=== PATIENT | male | born 1995 | race Two or more races ===

== ENCOUNTER 2024-04-16 08:02 | Emergency (ER) | payer BC, SELFPAY ==
[2024-04-16 08:18] VITALS: BP 173/108; PULSE 81; RESP 18; TEMP 36.9; O2SAT 100; BMI 25.0
--- NOTE | 2024-04-16 08:33 | PD.EDRME ---
Rapid Medical Screening Exam E Arrival date/time: 04/16/24 08:02 This is a 29-year-old male that has had abdominal pain for the past 4 days now. Patient reports nausea and vomiting. Patient denies any fever or chills. Patient denies any past medical history. Patient also reports that he had blurry vision this morning. Patient denies blurry vision at this time. Patient denies any headache or any other symptoms. I have greeted and performed a focused initial assessment of this patient. Initial appropriate labs ordered at this time. A comprehensive ED assessment and evaluation of the patient and analysis of all test and completion of medical decision making process will be conducted by additional ED provider. Chief Complaint: Abdominal Pain Time Seen by Provider: 04/16/24 08:08 Vital signs: Vital Signs Temperature 98.4 F 04/16/24 08:18 Pulse Rate 81 04/16/24 08:18 Respiratory Rate 18 04/16/24 08:18 Blood Pressure 173/108 H 04/16/24 08:18 Pulse Oximetry (%) 100 04/16/24 08:18 Oxygen Delivery Method Room Air 04/16/24 08:18
[2024-04-16 08:59] LABS: Collection Type, Urine Voided; Squamous Epithelial Cell,Urine 0 /hpf (0-5); WBC,Urine 0 /hpf (0-5)
[2024-04-16 09:02] LABS: Basophils % (Auto) 1 % (0-2.5); Eosinophils # (Auto) 0.1 Thou/mm3 (0.0-0.5); Eosinophils % (Auto) 1 % (0-10); Hematocrit 41.7 % (41.0-53.0); Hemoglobin 12.7 g/dL (13.5-16.0); Immature Granulocytes % (Auto) 0 % (0-0); Immature Granulocytes Auto 0.03 Thou/mm3 (0.00-0.00); Lymphocytes # (Auto) 1.4 Thou/mm3 (1.0-4.8); Lymphocytes % (Auto) 18 % (10-50); Mean Corpuscular HGB Conc 30.5 g/dl (31.0-37.0); Mean Corpuscular Hemoglobin 22.4 pg (25.0-35.0); Mean Corpuscular Volume 74 fL (80-100); Monocytes # (Auto) 1.1 Thou/mm3 (0.0-0.8); Monocytes % (Auto) 14 % (0-12); Neutrophils % (Auto) 65 % (37-80); Nucleated Red Blood Cell % 0 /100 WBC (0); Platelet Count 289 Thou/mm3 (140-440); RDW Standard Deviation 47.3 fL (35.1-43.9); Red Blood Count 5.67 Miln/mm3 (4.50-5.90); White Blood Count 7.7 Thou/mm3 (3.8-10.6)
[2024-04-16 09:20] LABS: Amphetamine/Methamp Scrn,U Negative (Negative); Barbiturate Screen,Urine Negative (Negative); Benzodiazepines Screen,Urine Negative (Negative); Benzoylecgonine Screen, Ur Negative (Negative); Fentanyl Screen,Urine Negative (Negative); Opiate Screen,Urine Negative (Negative); THC Screen,Urine Negative (Negative)
[2024-04-16 09:21] LABS: Alanine Aminotransferase 167 U/L (10-49); Albumin/Globulin Ratio 1.5 (1.2-2.2); Alkaline Phosphatase 131 U/L (46-116); Anion Gap 7 (7-16); Aspartate Amino Transferase 255 U/L (0-34); BUN/Creatinine Ratio 10 Ratio (12-20); Bilirubin,Total 1.1 mg/dL (0.3-1.2); Blood Urea Nitrogen 7 mg/dL (9-23); Calcium 10.3 mg/dL (8.3-10.6); Calcium (Corrected) 10.3 mg/dL (8.5-10.1); Carbon Dioxide 28.1 mMol/L (20.0-31.0); Chloride 102 mMol/L (98-107); Creatinine (Component) 0.7 mg/dL (0.6-1.3); Estimated Creatinine Clearance 135.4 mL/min (>60); Globulin 3.3 gm/dL (2.3-3.5); Glucose 112 mg/dL (74-106); Lipase 65 U/L (12-53); Osmolality,Calculated 272 (275-295); Sodium 137 mMol/L (136-145); Total Protein 8.3 gm/dL (5.7-8.2); eGFR > 60 See Note
[2024-04-16 10:16] LABS: Bilirubin,Urine Negative (Negative); Blood,Urine Negative (Negative); Clarity,Urine Clear (Clear/Hazy); Color,Urine Lt Yellow (Lt Yel-Yel); Culture Indicated,Urine Not Indicated; Glucose, Urine Negative (Negative); Ketones,Urine Negative (Negative); Leukocyte Esterase,Urine Negative (Negative); Nitrite,Urine Negative (Negative); Protein,Urine Trace (Neg - Trace); Specific Gravity,Urine 1.015 (1.001-1.035); Urobilinogen,Urine 0.2 mg/dL (0.0-1.0)
[2024-04-16 11:08] LABS: RBC,Urine 1 /hpf (0-3)
--- NOTE | 2024-04-16 12:27 | PD.EDABDPN ---
ED Abdominal Pain RME/HPI General Chief Complaint: Abdominal Pain Stated complaint: ABD PAIN AND BLURRED VISION Time seen by provider: 04/16/24 08:08 Arrival date/time: 04/16/24 08:02 RME / HPI RME / HPI narrative: 29-year-old male patient with no significant medical history, came in for evaluation regarding diffuse abdominal pain that comes and goes, for the last 4 days, this morning patient woke up with worsening pain, associated with nausea and 1 episode of vomiting. Patient denies any fever denies any chills denies any diarrhea or constipation. Patient also was worried because he felt dizzy and had blurry vision for few seconds. Currently patient is denying any blurry vision denies any headache denies any other complaints. Related Data Previous Rx's ?Medication ?Instructions ?Recorded dicyclomine 20 mg tablet 20 mg PO BID PRN abdominal pain 04/16/24 #20 tabs polyethylene glycol 3350 17 4 g PO QDAY #238 grams 04/16/24 gram/dose oral powder (Miralax) Allergies Allergy/AdvReac Type Severity Reaction Status Date / Time FISH Allergy Severe RASH, DIFF Uncoded 04/16/24 08:06 BREATHING Review of Systems Review of Systems Narrative Review of Systems: Review of system reviewed and within normal limits except mentioned in HPI ED Exam Narrative Physical exam: VITAL SIGNS: Reviewed. GENERAL APPEARANCE: Alert and interactive, follows commands, no acute distress, HEAD AND FACE: Non-traumatic. ENT: PERRL, pink conjunctivitis, eyelid no trauma, Mucous membrane moist. NECK: Supple, nontender, no nuchal rigidity. CHEST: No tenderness, no crepitus, no paradoxical movement, no retractions. LUNGS: Clear, well ventilated, symmetric, no rales, no wheezing, no ronchi, no stridor, good breath sounds bilaterally. HEART: Regular rate, regular rhythm, no murmur, no gallops. ABDOMEN: Soft, positive bowel sounds, nondistended, no guarding, nontender, no rebound, no masses, RECTAL: Deferred. GENITAL: Deferred. NEUROLOGICAL: Gross motor function intact sensory function intact, Appropriate for age. MUSCULOSKELETAL: low back nontender, full range of motion. EXTREMITIES: Nontender, full range of motion. SKIN: Color pink, dry, no rash, no lacerations, no abrasions, no contusions. LYMPHATICS: Deferred. Course Quality Measures none Orders Category Date Time Status CBC Stat Lab 04/16/24 08:50 Completed Comprehensive Metabolic Panel Stat Lab 04/16/24 08:50 Completed Drug Screen,Urine Stat Lab 04/16/24 08:44 Completed Lipase Stat Lab 04/16/24 08:50 Completed Urinalysis, C/S if Indicated Stat Lab 04/16/24 08:44 Completed Vital Signs Vital signs: Vital Signs Temperature 98.4 F 04/16/24 08:18 Pulse Rate 81 04/16/24 08:18 Respiratory Rate 18 04/16/24 08:18 Blood Pressure 173/108 H 04/16/24 08:18 Pulse Oximetry (%) 100 04/16/24 08:18 Oxygen Delivery Method Room Air 04/16/24 08:18 Abdominal Pain MDM MDM Narrative [facility] Narrative:: 29-year-old male patient with no significant medical history, came in for evaluation regarding diffuse abdominal pain that comes and goes, for the last 4 days, this morning patient woke up with worsening pain, associated with nausea and 1 episode of vomiting. Patient denies any fever denies any chills denies any diarrhea or constipation. Patient also was worried because he felt dizzy and had blurry vision for few seconds. Currently patient is denying any blurry vision denies any headache denies any other complaints. Patient's workup today all came back normal. Prior to discharge. Patient is denying any symptoms no abdominal pain a bit of deep palpation. I told him about his blood pressure, blood pressure was noted to be 156/97 prior to discharge. I will not treat this patient with regards to blood pressure problem right now. Patient was advised to follow-up closely with PCP. Patient agrees with the plan Patient appears nontoxic and hemodynamically stable. Patient discharged home and instructed to follow-up with primary care provider in 24 to 48 hours. Instructed to return to the emergency department immediately if worsening of symptoms Patient data External records reviewed:: None Clinical information provided by:: patient Social determinants that could affect healthcare access:: none Patient has the following chronic illnesses:: None How is presenting disease/condition affected by chronic disease/condition?: no chronic disease Evaluation data The following diagnostics were reviewed and interpreted by me:: lab results Lab and/or radiology exams considered but not ordered:: None Interpretation Summary: See results in MDM Medications / Prescriptions Medications or Prescriptions considered but not ordered:: None Medication administrations:: None Consultations Consultation(s) initiated? (list below): No Diagnosis Differential diagnosis abdominal pain: abdominal pain, pancreatitis and small bowel obstruction Most likely diagnosis given after review of the tests above:: Abdominal pain, elevated blood pressure with no diagnosis of hypertension Admission Indicated Admission indicated?: not indicated Admission Request Was there a request for admission?: No Disposition Plan Disposition Plan: Discharge Discharge Attestation Discharge Attestation: The patient was given an opportunity to ask questions and understood the discharge instructions. Discharge instructions specifically effects, indications for sooner follow up or return to the emergency department, and the expected course of current diagnosis. Patient condition: Stable Discharge Plan Plan Patient Disposition: HOME (Self Care) Disposition Comment: Stable Prescriptions/Referrals Prescriptions/Med Rec: New dicyclomine 20 mg tablet 20 mg PO BID PRN (Reason: abdominal pain) Qty: 20 0RF polyethylene glycol 3350 [Miralax] 17 gram/dose powder 4 g PO QDAY Qty: 238 0RF Referrals: Salome Ricketts BUSINESS SERVICES ADMINISTRATOR [Primary Care Provider] - In 1 week Problem List Clinical Impression: Abdominal pain, Blood pressure elevated without history of HTN Patient/Caregiver Discharge Instructions Discharge Activity: activity as tolerated Education Materials: Abdominal Pain Additional Instructions: Thank you for the opportunity for serving you today. You are stable for discharged . You are advised to: Follow-up with your PCP in 1 to 2 days regarding your elevated blood pressure today I am not going to start you on blood pressure medication you need to follow-up closely with your doctor for this Return to ED for worsening of symptoms Increase oral fluids Take medication as prescribed Print Language: Swazi Stand Alone Forms: [employer] Info., Patient Portal Info Letter ANALIA/JUSTIN Supervising Physician ANALIA/JUSTIN Supervising Physician: MD Beth
== END 2024-04-16 12:32 | disposition home or self-care (01) ==
PROVIDERS: Nurse Practitioner Family; Emergency Provider Emergency Medicine; PCP Nurse Practitioner Family
DX: R10.9 Unspecified abdominal pain (principal); R03.0 Elevated blood-pressure reading, without diagnosis of hypertension
CPT/HCPCS: 36415; 80053; 80307; 81001; 83690; 85025; 99283

== ENCOUNTER → 2024-04-26 | Outpatient (CLI) | payer BC, SELFPAY ==
--- NOTE | 2024-04-26 | XR_ITS ---
Examination: PA lateral chest 2 views Technique: Upright PA lateral chest 2 views Exam date and time: April 26, 2024 0737 hrs. Indications: Chest pain near the sternum beginning 3 days ago. Findings: Normal heart size No pneumonia or pulmonary edema The osseous structures are intact Impression: No pneumonia or pulmonary edema
[2024-04-26 08:37] LABS: Basophils # (Auto) 0.1 Thou/mm3 (0.0-0.2); Basophils % (Auto) 2 % (0-2.5); Eosinophils # (Auto) 0.2 Thou/mm3 (0.0-0.5); Eosinophils % (Auto) 3 % (0-10); Hematocrit 41.9 % (41.0-53.0); Hemoglobin 12.9 g/dL (13.5-16.0); Immature Granulocytes % (Auto) 1 % (0-0); Immature Granulocytes Auto 0.08 Thou/mm3 (0.00-0.00); Lymphocytes % (Auto) 33 % (10-50); Mean Corpuscular HGB Conc 30.8 g/dl (31.0-37.0); Mean Corpuscular Hemoglobin 22.7 pg (25.0-35.0); Mean Corpuscular Volume 74 fL (80-100); Monocytes % (Auto) 16 % (0-12); Neutrophils # (Auto) 2.7 Thou/mm3 (1.8-7.7); Neutrophils % (Auto) 45 % (37-80); Nucleated Red Blood Cell % 0 /100 WBC (0); Platelet Count 380 Thou/mm3 (140-440); RDW Standard Deviation 50.3 fL (35.1-43.9); Red Blood Count 5.68 Miln/mm3 (4.50-5.90)
[2024-04-26 08:48] LABS: Urea Breath Test Negative (Negative)
[2024-04-26 08:58] LABS: Glucose Estimated Average 108 mg/dL (80-131); Hemoglobin A1C 5.4 % Hgb (4.8-6.0)
[2024-04-26 09:21] LABS: Hepatitis C Antibody Non Reactive (Non React)
[2024-04-26 09:25] LABS: Alanine Aminotransferase 209 U/L (10-49); Albumin, Serum 4.6 gm/dL (3.5-5.0); Albumin/Globulin Ratio 1.5 (1.2-2.2); Alkaline Phosphatase 263 U/L (46-116); Anion Gap 10 (7-16); Aspartate Amino Transferase 167 U/L (0-34); BUN/Creatinine Ratio 7 Ratio (12-20); Bilirubin,Total 0.5 mg/dL (0.3-1.2); Blood Urea Nitrogen 5 mg/dL (9-23); Calcium 9.8 mg/dL (8.3-10.6); Calcium (Corrected) 9.8 mg/dL (8.5-10.1); Carbon Dioxide 29.2 mMol/L (20.0-31.0); Chloride 102 mMol/L (98-107); Cholesterol 209 mg/dL (132-200); Creatinine (Component) 0.7 mg/dL (0.6-1.3); Glucose 103 mg/dL (74-106); HDL Cholesterol 52 mg/dL (40-60); LDL Cholesterol,Calculated 102 mg/dL (0-130); Osmolality,Calculated 278 (275-295); Potassium 4.3 mMol/L (3.4-5.1); Sodium 141 mMol/L (136-145); Total Protein 7.6 gm/dL (5.7-8.2); Triglycerides 275 mg/dL (30-150); eGFR > 60 See Note
[2024-05-02 07:03] LABS: Direct LDL* 135 mg/dL (<100)
== END | disposition home or self-care (01) ==
LOC: COPL 06:53
PROVIDERS: PCP Family Medicine; Referring Provider Nurse Practitioner Family; Visit Provider Radiology Diagnostic Radiology
DX: R05.9 Cough, unspecified (principal); K21.9 Gastro-esophageal reflux disease without esophagitis; Z13.220 Encounter for screening for lipoid disorders; Z13.1 Encounter for screening for diabetes mellitus; Z11.59 Encounter for screening for other viral diseases
CPT/HCPCS: 36415; 71046; 80053; 80061; 83013; 83014; 83036; 83721; 85025; 86803

== ENCOUNTER 2025-02-03 19:29 | Emergency (ER) | payer BC, SELFPAY ==
[2025-02-03 19:30] VITALS: BMI 24.2
--- NOTE | 2025-02-03 19:33 | EKG_ITS ---
[facility] Test Date: 2025-02-03 Pat Name: MANUEL LIMON Department: Room: - Gender: Male Physician Executive: : 1995 Requested By: ED Temporary Provider Order Number: [id number] Reading MD: ED Temporary Provider Measurements Intervals Wolverine Rate: 90 P: 37 ME: 160 QRS: 21 QRSD: 99 T: 18 QT: 362 QTc: 444 Interpretive Statements SINUS RHYTHM INCOMPLETE RIGHT BUNDLE BRANCH BLOCK [90+ ms QRS DURATION, TERMINAL R IN V1/V2, 40+ ms S IN I/aVL/V4/V5/V6] No previous ECG available for comparison /store/S0/[id number].pdf
[2025-02-03 20:10] VITALS: BP 129/83; PULSE 94; RESP 18; TEMP 36.8; O2SAT 96
--- NOTE | 2025-02-03 20:22 | XR_ITS ---
Examination: Abdomen sonogram, Limited Date and time of exam: February 03, 2025, 1034 hours INDICATIONS: Pinching sensation in the right upper abdomen beginning 3 weeks ago Technique: Real-time quan scale transabdominal sonographic images of the upper abdomen obtained. Findings: Negative for gallstones Normal gallbladder wall 0.1 cm Normal common bile duct 0.2 cm Pancreas obscured by bowel gas Liver 15.2 cm fatty infiltration mildly irregular contour no focal liver lesions Normal hepatopetal portal venous flow Patent IVC IMPRESSION: Normal gallbladder Normal common bile duct Suspect primary hepatocellular disease
--- NOTE | 2025-02-03 20:23 | EDRME_ITS ---
Rapid Medical Screening Exam [facility] Arrival date/time: 02/03/25 19:29 29M with history of alcoholism (multiple drinks per day) presents to ED with 2 weeks of worsening SOB, generalized numbness, tremors, and N/V. Patient's last drink was several days ago. Chief Complaint: Chest Pain Vital signs: Vital Signs Temperature 98.3 F 02/03/25 20:10 Pulse Rate 94 02/03/25 20:10 Respiratory Rate 18 02/03/25 20:10 Blood Pressure 129/83 02/03/25 20:10 Pulse Oximetry (%) 96 02/03/25 20:10 Oxygen Delivery Method Room Air 02/03/25 20:10 Exam: Some scleral icterus and tremors. Anxious. Clinical Impression: Alcohol withdrawal vs anxiety vs drug use vs cirrhosis vs panic attack
[2025-02-03 20:43] LABS: Basophils # (Auto) 0.0 Thou/mm3 (0.0-0.2); Basophils % (Auto) 1 % (0-2.5); Eosinophils # (Auto) 0.1 Thou/mm3 (0.0-0.5); Eosinophils % (Auto) 1 % (0-10); Hematocrit 35.6 % (41.0-53.0); Hemoglobin 11.9 g/dL (13.5-16.0); Immature Granulocytes Auto 0.02 Thou/mm3 (0.00-0.00); Lymphocytes # (Auto) 1.2 Thou/mm3 (1.0-4.8); Lymphocytes % (Auto) 15 % (10-50); Mean Corpuscular HGB Conc 33.4 g/dl (31.0-37.0); Mean Corpuscular Hemoglobin 27.5 pg (25.0-35.0); Mean Corpuscular Volume 82 fL (80-100); Monocytes # (Auto) 1.0 Thou/mm3 (0.0-0.8); Monocytes % (Auto) 13 % (0-12); Neutrophils # (Auto) 5.5 Thou/mm3 (1.8-7.7); Neutrophils % (Auto) 71 % (37-80); Nucleated Red Blood Cell # 0.00 Thou/mm3 (0.00-0.00); Nucleated Red Blood Cell % 0 /100 WBC (0); Platelet Count 154 Thou/mm3 (140-440); RDW Standard Deviation 59.6 fL (35.1-43.9); Red Blood Count 4.33 Miln/mm3 (4.50-5.90); White Blood Count 7.8 Thou/mm3 (3.8-10.6)
[2025-02-03 20:58] LABS: INR 1.1 (0.9-1.3); Partial Thromboplastin Time 30.9 Seconds (22.0-36.0); Prothrombin Time 11.9 Seconds (9.0-12.2)
[2025-02-03 21:06] LABS: Alanine Aminotransferase 201 U/L (10-49); Albumin, Serum 5.2 gm/dL (3.5-5.0); Albumin/Globulin Ratio 1.6 (1.2-2.2); Alcohol, Blood Medical < 3.0 mg/dL (0-10.0); Alkaline Phosphatase 122 U/L (46-116); Anion Gap 14 (7-16); Aspartate Amino Transferase 389 U/L (0-34); BUN/Creatinine Ratio 20 Ratio (12-20); Bilirubin,Total 1.7 mg/dL (0.3-1.2); Blood Urea Nitrogen 20 mg/dL (9-23); Calcium 9.6 mg/dL (8.3-10.6); Calcium (Corrected) 9.6 mg/dL (8.5-10.1); Carbon Dioxide 25.2 mMol/L (20.0-31.0); Chloride 96 mMol/L (98-107); Creatinine (Component) 1.0 mg/dL (0.6-1.3); Estimated Creatinine Clearance 98.4 mL/min (>60); Globulin 3.2 gm/dL (2.3-3.5); Glucose 98 mg/dL (74-106); Osmolality,Calculated 272 (275-295); Potassium 3.6 mMol/L (3.4-5.1); Sodium 135 mMol/L (136-145); Total Protein 8.4 gm/dL (5.7-8.2); eGFR > 60 See Note
[2025-02-03] MEDS: DIAZEPAM 5 MG TABLET 10 MG PO (21:19)
[2025-02-03 22:00] LABS: Amphetamine/Methamp Scrn,U Negative (Negative); Barbiturate Screen,Urine Negative (Negative); Benzodiazepines Screen,Urine Negative (Negative); Benzoylecgonine Screen, Ur Negative (Negative); Fentanyl Screen,Urine Negative (Negative); Opiate Screen,Urine Negative (Negative); THC Screen,Urine Negative (Negative)
[2025-02-03 22:28] VITALS: BP 131/91; PULSE 84; RESP 18; TEMP 36.8; O2SAT 100
--- NOTE | 2025-02-03 23:17 | EDNOTE_ITS ---
ED General RME/HPI General Chief complaint: Chest Pain Stated complaint: CHEST PAIN, DIZZY, SHAKY, NUMBNESS BLE X2 WKS Time Seen by Provider: 02/03/25 21:27 Arrival date/time: 02/03/25 19:29 RME / HPI RME / HPI narrative: 02/03/25 19:29 29M with history of alcoholism (multiple drinks per day) presents to ED with 2 weeks of worsening SOB, generalized numbness, tremors, and N/V. Patient's last drink was several days ago. Exam: Some scleral icterus and tremors. Anxious. Impression: Alcohol withdrawal vs anxiety vs drug use vs cirrhosis vs panic attack Related Data Previous Rx's ?Medication ?Instructions ?Recorded dicyclomine 20 mg tablet 20 mg PO BID PRN abdominal p ain 04/16/24 #20 tabs polyethylene glycol 3350 17 4 g PO QDAY #238 grams gram/dose oral powder (Miralax) Allergies Allergy/AdvReac Type Severity Reaction Status Date / Time FISH Allergy Severe RASH, DIFF Uncoded 02/03/25 19:30 BREATHING ED Exam Narrative Physical exam: Physical Exam: GENERAL: Awake, answering questions appropriately, appears stated age HEENT: NC/AT. Moist mucosa. PERRLA/EOMI. CARDIO: Heart RRR, no obvious murmurs, no JVD. PULM: No coughing or visible SOB. Lungs CTA B/L. GI: Abdomen soft, NT/ND, +BS. SKIN/MSK/EXT: No wounds/discoloration/rashes/edema/amputations noted. +Pedal pulses present B/L. NEURO: Oriented x3, Moves extremities x4, no focal neurologic deficits noted. Course Quality Measures none Orders Category Date Time Status EKG (ED ONLY) *Do not use* NOW Care 02/03/25 19:33 Completed EKG (ED Only) Stat Exams 02/03/25 19:33 Draft US liver Stat Exams 02/03/25 20:22 Completed Alcohol, Blood Medical Stat Lab 02/03/25 20:33 Completed CBC Stat Lab 02/03/25 20:33 Completed CMP [Comprehensive Metabolic Panel] Stat Lab 02/03/25 20:33 Completed Drug Screen,Urine Stat Lab 02/03/25 21:33 Completed INR [Prothrombin Time with INR] Stat Lab 02/03/25 20:33 Completed PTT [Partial Thromboplastin Time] Stat Lab 02/03/25 20:33 Completed Diazepam [Valium] Med 02/03/25 20:22 Discontinued 10 mg PO X1 ONE Vital Signs Vital signs: Vital Signs Temperature 98.3 F 02/03/25 20:10 Pulse Rate 94 02/03/25 20:10 Respiratory Rate 18 02/03/25 20:10 Blood Pressure 129/83 02/03/25 20:10 Pulse Oximetry (%) 96 02/03/25 20:10 Oxygen Delivery Method Room Air 02/03/25 20:10 Discharge Plan Plan Patient Disposition: HOME (Self Care) Discharge Disposition comment: Please follow-up with your primary care doctor maria isabel pappas 5 days and ask for repeat liver function panel Ask your primary care provider for support with alcohol dependence Please stop drinking alcohol completely If you do drink alcohol and stop please come to the emergency room immediately for alcohol withdrawal management Patient condition on transfer: Stable Prescriptions/Referrals Prescriptions/Med Rec: No Action dicyclomine 20 mg tablet 20 mg PO BID PRN (Reason: abdominal pain) Qty: 20 0RF polyethylene glycol 3350 [Miralax] 17 gram/dose powder 4 g PO QDAY Qty: 238 0RF Referrals: No Primary/Family,Physician [Primary Care Provider] - In 1 week Problem List Clinical Impression: Alcohol use disorder Patient/Caregiver Discharge Instructions Education Materials: Alcoholism: Getting Help, Alcohol Withdrawal: What to Expect Print Language: Guatemalan Stand Alone Forms: [employer] Info., Patient Portal Info Letter MDM Narrative MDM hospital course (for use when minimal MDM required): HPI: 29-year-old male with past medical history of alcohol use disorder, hypertension? Presenting to the ED on 02/03 with episode of palpitations, chest pain, impending doom and diaphoresis. Patient states that she was driving home from work when experiencing the following symptoms which prompted him to come to the ED. Patient states that he was recently diagnosed with hypertension and PCP started him on antihypertensives. He also apparently drinks alcohol daily on average a sixpack a day; however, his last drink was last week. Patient states that he went through withdrawal symptoms last Thursday and he was having audiovisual hallucinations, anxiety and what he describes as delirium tremens. Patient states that he did not go to the hospital during that time and that now he he does not have any other symptoms. On examination, please refer to the physical exam note above; patient presented mildly hypertensive 131/91, heart rate of 84, respiratory of 18, afebrile satting 100 on room air. Laboratory findings were largely unremarkable other than normocytic anemia likely anemia of chronic disease from primary hepatocellular disease, CMP was also largely unremarkable other than mild hyponatremia of sodium 135 but liver enzymes are markedly elevated with T. bili of 1.7, AST 389, ALT 201, alk phos of 122. Lipase was also mildly elevated at 65 but the patient denied having any concerning abdominal symptoms as above. Urine tox screen was negative for any acute findings. EKG showed sinus rhythm without any concerning ST changes liver ultrasound showed normal gallbladder, normal common bile duct and primary hepatocellular disease. #Alcohol use disorder #Panic disorder #Primary hepatocellular disease As noted above, patient has significant history of gall use disorder His last drink was over 1 week ago and he is out of the withdrawal window at this time Labs and imaging findings as above Plan: Counseled patient regarding complete cessation from alcohol and to return to the hospital if he stops drinking alcohol again Patient will see PCP within the next 5 days for support regarding alcohol use disorder along with repeat liver function test If patient continues to have panic disorder suggest follow-up with PCP for possible need for medications Patient seen and assessed with attending Dr. Thi Myers, PGY-2 Internal Medicine - [facility] Medication Administration(s) Medication Administration History Discontinued Medications Diazepam (Diazepam 5 Mg Tablet) 10 mg PO X1 ONE Stop: 02/03/25 20:23 Last Admin: 02/03/25 21:19 Dose: 10 mg Documented By: ANTONIA
== END 2025-02-03 23:44 | disposition home or self-care (01) ==
PROVIDERS: Physician Assistant; Emergency Provider Emergency Medicine
DX: F10.90 Alcohol use, unspecified, uncomplicated (principal); I45.10 Unspecified right bundle-branch block; K76.9 Liver disease, unspecified; D64.9 Anemia, unspecified; F41.0 Panic disorder [episodic paroxysmal anxiety]; Y90.0 Blood alcohol level of less than 20 mg/100 ml
CPT/HCPCS: 36415; 76705; 80053; 80307; 80320; 85025; 85610; 85730; 93005; 99283; A9270; G0480